=== PATIENT | male | born 1960 | race Caucasian/White ===

== ENCOUNTER 2022-06-26 07:50 | Outpatient (CLI) | payer BC, SELFPAY | END 2022-06-26 07:51 | disposition home or self-care (01) | LOC: NFLDREF 07-04 11:42 | PROVIDERS: PCP Family Medicine; Referring Provider Family Medicine; Visit Provider Family Medicine | DX: Z00.00 Encounter for general adult medical examination without abnormal findings (principal); I10 Essential (primary) hypertension; E78.5 Hyperlipidemia, unspecified; R73.01 Impaired fasting glucose; Z12.5 Encounter for screening for malignant neoplasm of prostate | CPT/HCPCS: 80053; 80061; 84153 ==

== ENCOUNTER 2022-07-29 07:43 | Outpatient (CLI) | payer BC, SELFPAY | END 2022-07-29 07:44 | disposition home or self-care (01) | LOC: OP CLINIC 07:43 | PROVIDERS: PCP Family Medicine; Visit Provider Internal Medicine | DX: Z12.11 Encounter for screening for malignant neoplasm of colon (principal); K63.5 Polyp of colon; K57.30 Diverticulosis of large intestine without perforation or abscess without bleeding | CPT/HCPCS: 45380; 88305; J2250; J3010 ==

== ENCOUNTER 2023-05-16 08:08 | Emergency (ER) | payer OTHER, SELFPAY ==
[2023-05-16 08:12] VITALS: BP 141/95; PULSE 57; RESP 18; TEMP 36.1; O2SAT 97; BMI 27.3
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
[2023-05-16 08:26] VITALS: BP 133/76; PULSE 52; RESP 16; O2SAT 97
[2023-05-16 09:19] VITALS: BP 127/77; PULSE 52; RESP 16; O2SAT 95
== END 2023-05-16 09:41 | disposition home or self-care (01) ==
PROVIDERS: Emergency Provider Family Medicine; PCP Family Medicine
DX: S16.1XXA Strain of muscle, fascia and tendon at neck level, initial encounter (principal); V43.52XA Car driver injured in collision with other type car in traffic accident, initial encounter; M25.522 Pain in left elbow; M25.562 Pain in left knee
CPT/HCPCS: 72040; 73080; 73560; 99284

== ENCOUNTER 2023-07-08 08:42 | Outpatient (CLI) | payer OTHER, SELFPAY | END 2023-07-08 08:43 | disposition home or self-care (01) | PROVIDERS: PCP Family Medicine; Visit Provider Family Medicine | DX: E78.2 Mixed hyperlipidemia (principal); I10 Essential (primary) hypertension | CPT/HCPCS: 80053; 80061 ==

== ENCOUNTER 2024-10-12 12:39 | Emergency (ER) | payer OTHER, SELFPAY ==
--- OUTSIDE RECORDS SUMMARY | 2011-07-05 04:44 | XMS_ITS | Continuity of Care Document ---
Author Organization [facility] Address [address] [address] [place] [address] Phone Care Team Providers Care Lead Software Development Engineer Name Role Phone Unavailable Unavailable Unavailable Advance Directives Directive Yes / No Effective Date File Name No Information Encounters Encounter Description Practice Location Reason(s) For Visit Diagnoses Date Provider Providers Copied on Encounter [facility], [address] [address], [place], [place], [id number], [place] tel:[phone] [facility] No Information Mar-0 9-201 2 No Information Referring Provider: [place], [address] [place], [address]. tel:[phone] Family History Family Member Type Diagnosis Age At Onset No Information Payers Payer name Insurance type Covered libertarian ID Authoriza tion(s) No Information Social History Type Description Quantity Date Captured Comments Sex Male Smoking Status No Information Chief Complaint And Reason For Visit No Information Reason For Referral Reason For Referral No Information History Of Present Illness Encounter Date Complaint History Of Prese nt Illness No Information Functional Status Date Functional Assessmen t No Information Instructions Date Instruction Additional Infor mation No Information Assessments Type Assessment Date No Information Patient Care Teams Name Effective Dates (start - stop) Status Members No Information
[2024-10-12] VITALS (14 sets, daily range): BP systolic 107–130; BP diastolic 67–81; PULSE 54–66; RESP 11–22; TEMP 36.2; O2SAT 94–99; BMI 29.0
--- OUTSIDE RECORDS SUMMARY | 2024-10-12 12:43 | XMS_ITS | Clinical Summary ---
Author Organization [facility] Address [address] [place] [address] Care Team Providers Care Rabbit Breeder Name Role Phone Sadi Agudelol Primary Care Provider Unavailabl e Allergies Active Allergy Reactions Criticality Noted Date Comments Codeine Vomiting 01/19/2020 Morphine Other - Describe In Comment Field High hypotensive Medications aspirin chewable 81 mg chewable tablet Take 81 mg by mouth once daily. Active hydroCHLOROthiaz felix (HCTZ) 25 mg tablet Take 1 tablet by mouth once daily. 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 Gender Identity Not on file Sexual Orientation Not on file Obstetrics History Last Filed Vital Signs Vital Sign Reading Time Taken Comments Blood Pressure 113/72 01/19/2020 11:01 AM CDT to wer Pulse 67 01/19/2020 11:01 AM CDT Temperature - - Respiratory Rate - - Oxygen Saturation 96% 01/19/2020 11:01 AM CDT Inhaled Oxygen Concentration - - Weight 103.9 kg (229 lb) 01/19/2020 11:01 AM CDT Height - - Body Mass Index - - Plan of Treatment Health Maintenance Due Date Last Done Comments Tdap 01/19/1972 Depression screening for age 12+ 1973 HIV for age 15-65 01/19/1976 BMI (ht and wt on same day) for age 18+ 1979 Hepatitis C screening for ag e 18-79 1979 Tetanus booster 1981 Colonoscopy through age 75 2006 Lipids for age 45-75 2006 Pneumococcal series for age 50+ (1 of 1 - PCV) 2011 Zoster (shingles) series for age 50+ (1 of 2) 2011 COVID-19 vaccine series (3 - 2023- season) 2023 08/18/2020, 07/28/2020 Influenza Vaccine (Season Ended) 2024 RSV vaccine for adults or (1 - 1-dose 75+ series) 01/19/2036 Hepatitis B series for 19+ Aged Out N o longer eligible based on patient's age to complete this topic Insurance [facility] Care Teams Rabbit Breeder Relationship Specialty Start Date End Date Hector Agudelo PCP - General Family Practice 01/10/20
--- OUTSIDE RECORDS SUMMARY | 2024-10-12 12:43 | XMS_ITS | Clinical Summary ---
Author Organization [facility] Address [address] , [address] [place] [address] Phone Care Team Providers Care Radar Signal Processing Engineer Name Role Phone [facility] Unavailable Unava ilable Conditions or Problems Problem Name Problem Code Onset Date Status Entry Date Provider Comment Standard Description Annotate Neck pain 69534622 (SNOMED CT) Active Jefferson Pierce MD Neck pain Hand numbness 861734584 (SNOMED CT) Active Jefferson Pierce MD Numbness of hand Medications No information available. Medications Administered No information available. Allergies, Adverse Reactions, Alerts No information available. Results Date Name Value Unit Range Flag Description Internal Other: Authorizatio n - OBS [email or web address] Yes Authoriza tion: Release of Information - Authorize [facility] - Payment and Healthcare Operations ROIAUTHOTHER Yes Authoriz ation: Release of Information - Authorize Others/Insurance - Payment and Healthcare Operations HIECONSENT Yes Consent To Release information to the Health Information Exchange (HIE) [email or web address] Yes Authorizat ion: Authorization for [facility] to leave messages, voicemail, send text messages, send emails AUTHRELHCARE Yes Authoriz ation: Release/Retrieval of Information to/from Healthcare Facilities, Pharmacy Benefit Payers and Providers AUTHPRIVPRAC Yes Authoriz ation: Notice of privacy practices AUTHBENEFIT Yes Authoriza tion: Assignment of Benefits and Payment Agreement Plan of Care No information available. Procedures Code Procedure Name Date Entry Date CPT-34233 Nerve Conduction 7-8 studies CPT-46263 EMG with NCS (5+ muscles) - 1 limb 10/26 Vital Signs No information available. Immunizations No information available. Advance Directives No information available.
--- NOTE | 2024-10-12 13:37 | CRLHL7_ITS ---
For Patients: As a result of the Century Cures Act, medical imaging exams and procedure reports are released immediately into your electronic medical record. You may view this report before your referring provider. If you have questions, please contact your health care provider. INDICATION: Right upper quadrant pain. TECHNIQUE: Ultrasound abdomen limited. COMPARISON: None. FINDINGS: Gallbladder: No stones or sludge. Normal wall thickness. No pericholecystic fluid. Common bile duct: 4 mm. IMPRESSION: Unremarkable ultrasound of the gallbladder and common bile duct. Dictated by Christianne Billings MD @ 10/12/2024 2:02:39 PM (Electronically Signed)
--- NOTE | 2024-10-12 13:38 | CRLHL7_ITS ---
For Patients: As a result of the Century Cures Act, medical imaging exams and procedure reports are released immediately into your electronic medical record. You may view this report before your referring provider. If you have questions, please contact your health care provider. INDICATION: Right lower chest pain. TECHNIQUE: Chest 2 views. COMPARISON: None. FINDINGS/ IMPRESSION: No focal consolidation, effusion or pneumothorax. Cardiac size is within normal limit without pulmonary edema. Scattered degenerative changes of the spine. Dictated by Germain Hernandez MD @ 10/12/2024 2:24:54 PM (Electronically Signed)
--- OUTSIDE RECORDS SUMMARY | 2024-10-12 14:10 | XMS_ITS | Clinical Summary ---
Author Organization [facility] Address [address] , [address] [place] [address] Phone Care Team Providers Care Embossograph Operator Name Role Phone [facility] Unavailable Unava ilable Conditions or Problems Problem Name Problem Code Onset Date Status Entry Date Provider Comment Standard Description Annotate Neck pain 63945712 (SNOMED CT) Active Jefferson Pierce MD Neck pain Hand numbness 523111244 (SNOMED CT) Active Jefferson Pierce MD Numbness [...] Procedures Code Procedure Name Date Entry Date CPT-85988 Nerve Conduction 7-8 studies CPT-97128 EMG with NCS (5+ muscles) - 1 limb 10/26 Vital Signs No information available. Immunizations No information available. Advance Directives No information available.
[2024-10-12 14:22] LABS: Basophils Absolute Auto 0.03 K/uL (0.00-0.30); Basophils Percent Auto 0.4 % (0.0-3.0); Eosinophils Absolute Auto 0.23 K/uL (0.00-0.50); Hematocrit 44.8 % (37.0-53.0); Hemoglobin* 15.1 gm/dL (13.5-17.5); Immature Granulocytes Abs Auto 0.01 K/uL (0.00-0.30); Immature Granulocytes Pct Auto 0.1 %; Mean Corpuscular HGB Conc 34 gm/dL (32-36); Mean Corpuscular Hemoglobin 31 pg (26-34); Mean Corpuscular Volume 92 fL (80-100); Monocytes Percent Auto 8.6 % (0.0-11.0); Neutrophils Absolute Auto 5.54 K/uL (1.7-7.0); Neutrophils Percent Auto 71.9 % (42.0-72.0); Platelet Count* 258 K/uL (140-440); RDW Coefficient of Variation % 12.4 % (11.5-15.5); Red Blood Count 4.85 m/uL (4.30-5.90)
[2024-10-12 14:33] LABS: Slide Review Reflex No
[2024-10-12 14:37] LABS: Troponin, Point-of-Care* 0.01 ng/ml (0.01-0.04)
[2024-10-12 14:43] LABS: Albumin* 4.5 g/dL (3.3-5.0); Chloride* 99 mmol/L (96-114); Potassium* 4.5 mmol/L (3.6-5.1); Sodium* 139 mmol/L (135-149)
[2024-10-12 14:46] LABS: Alanine Aminotransferase* 83 U/L (4-50); Alkaline Phosphatase* 68 U/L (40-150); Anion Gap 9 mEq/L (7-15); Aspartate Amino Transferase* 60 U/L (12-35); Bilirubin Total* 0.7 mg/dL (0.1-1.5); Blood Urea Nitrogen* 16 mg/dL (7-30); Carbon Dioxide* 31 mmol/L (20-32); Creatinine* 0.7 mg/dL (0.5-1.5); Est. Creatinine Clearance* 78.07; Estimated Glomerular Filt Rate 104 ml/min; Total Protein* 7.7 g/dL (6.0-8.3)
[2024-10-12 14:47] LABS: Calcium* 9.5 mg/dL (8.4-10.6); Glucose* 108 mg/dL (60-115); Magnesium* 2.1 mg/dL (1.5-2.6)
--- NOTE | 2024-10-12 15:31 | ED_ITS ---
HPI - General Adult General Date Seen: 10/12/24 Chief complaint: Chest Pain Stated complaint: Near upper abdominal right side pain Time Seen by Provider: 10/12/24 13:02 Source: patient Mode of arrival: ambulatory Limitations: no limitations History of Present Illness HPI narrative: Patient is a 64-year-old male presenting to emergency department for right-sided mid axillary lower pain. Pain was around ribs 7 and 8. He states the pain have been relatively suddenly while he is at work. He states the pain is getting so bad it caused him to feel like he was going to pass out. He has laying on the floor and that seemed to make the symptoms improved. He was at work save his desk when this occurred so EMS was called. He declined come in by EMS in drove himself and instead. States the pain was a sharp stabbing sensation. Deep breath did not seem to make the pain worse. Says the pain is a 2/10. Denies ever having symptoms like this before. No history of heart disease. No history of gallbladder disease. States last time he ate anything was 09:00, several hours before symptoms started. No history of abdominal issues. No other concerns noted at this time. Pain does not seem to get worse with movement. Related Data Previous Rx's ?Medication ?Instructions ?Recorded hydrochlorothiazide 25 mg tablet 25 mg PO DAILY #90 ta bs 07/08/23 lisinopril 20 mg tablet 20 mg PO DAILY #90 tabs 06/26 06/21 nirmatrelvir 300 mg (150 mg 3 ea (3 x 300 mg (150 mg x 2)-100 11/04/23 x2)-ritonavir 100 mg tablet,dose mg) PO QAM AND QPM #3 0 tabs pack (Paxlovid) Allergies Allergy/AdvReac Type Severity Reaction Status Date / Time morphine Allergy Severe Hypotension Verified 11/03/23 12:46 Review of Systems Status of ROS: Reports: 10 or more systems reviewed and unremarkable except as noted in History and below [facility] Medical History History of kidney stones ?Z87.442 - Personal history of urinary calculi (ICD-10) Surgical History History of herniorrhaphy ?Z98.890 - Other specified postprocedural states (ICD-10) ?Z87.19 - Personal history of other diseases of the digestive system (ICD-10) History of spinal surgery ?Z98.890 - Other specified postprocedural states (ICD-10) Family History Father Coronary artery disease Colon cancer Social History What is your current living situation?: I presently have a place to live Problems where you live: declined to answer In the past 12 months, utilities in danger of being shut off: no In past 12 months, lack of transportation kept you from medical appts, meetings, work, or getting things needed for daily living: no In the past 12 mos, have been you worried that your food would run out before you had money to buy more?: never true In the past 12 mos, the food you bought just didn't last and you didn't have money to buy more?: never true Smoking Status: Never smoker Do you use any of these nicotine containing products: None Second hand tobacco smoke exposure: No How often do you have a drink containing alcohol: 4 or more times a week How many standard drinks containing alcohol do you have on a typical day: 1 or 2 How often do you have six or more drinks on one occasion: Never AUDIT-C Alcohol total score: 4 Non-prescribed substance use: denies use How often does anyone, including family, friends and others, physically hurt you : never How often does anyone, including family, friends and others, insult or talk down to you: never How often does anyone, including family, friends and others, threaten you with harm: never How often does anyone, including family, friends and others, scream or curse at you: never service: No Exam Narrative: Exam Narrative: Const: Well-nourished, Well-developed, in mild distress Eyes: PERRL, no conjunctival injection, and symmetrical lids HENT: Atraumatic external nose and ears. Moist mucous membranes. Neck: Symmetric, trachea midline, No thyromegaly. CVS: RRR, No murmurs or gallops. Peripheral pulses 2+ and equal in all extremities RESP: Unlabored respiratory effort. Clear to auscultation bilaterally. GI: Nontender/Nondistended, No rebound or guarding. Negative Smith sign MSK:Extremities w/o deformity, Normal Active ROM Skin: Warm, Dry. No rashes or lesions. Neuro: Normal Muscle tone, No focal neurological deficits. Psych: Awake, Alert, & Oriented x3. Appropriate mood and affect. Const: Vital Signs, click to edit/add: Vital Signs - 24 hr 10/12/24 12:54 10/12/24 13:14 10/12/24 13:15 Temperature 97.2 F L Pulse Rate 59 L 57 L Pulse Rate [Pulse Oximeter] 58 L Respiratory Rate 16 12 13 Blood Pressure 113/72 Blood Pressure [Ri ght Upper Arm] 130/71 Pulse Oximetry 98 97 97 Oxygen Delivery Me thod Room Air 10/12/24 13:30 10/12/24 13:32 10/12/24 13:54 Temperature Pulse Rate 57 L 56 L 54 L Pulse Rate [Pulse Oximeter] Respiratory Rate 11 L Blood Pressure 109/68 Blood Pressure [Ri ght Upper Arm] Pulse Oximetry 94 95 99 Oxygen Delivery Me thod 10/12/24 14:00 10/12/24 14:02 10/12/24 14:15 Temperature Pulse Rate 57 L 60 58 L Pulse Rate [Pulse Oximeter] Respiratory Rate 13 12 21 Blood Pressure 114/81 Blood Pressure [Ri ght Upper Arm] Pulse Oximetry 97 97 96 Oxygen Delivery Me thod 10/12/24 14:30 10/12/24 14:31 10/12/24 14:45 Temperature Pulse Rate 66 58 L 61 Pulse Rate [Pulse Oximeter] Respiratory Rate 22 20 Blood Pressure 109/72 Blood Pressure [Ri ght Upper Arm] Pulse Oximetry 95 97 96 Oxygen Delivery Me thod 10/12/24 15:00 10/12/24 15:02 Temperature Pulse Rate 64 Pulse Rate [Pulse Oximeter] Respiratory Rate 16 Blood Pressure 107/67 Blood Pressure [Ri ght Upper Arm] Pulse Oximetry 97 Oxygen Delivery Me thod Course Vital Signs Vital signs: Initial Vital Signs Temperature 97.2 F L 10/12/24 12:54 Temperature Source Temporal Artery Scan 10/12/24 12:54 Pulse Rate 58 L 10/12/24 12:54 Respiratory Rate 16 10/12/24 12:54 Blood Pressure 130/71 10/12/24 12:54 Blood Pressure Mean 90 10/12/24 12:54 Pulse Oximetry 98 10/12/24 12:54 Oxygen Delivery Method Room Air 10/12/24 12:54 Vital Signs Temperature 97.2 F L 10/12/24 12:54 Pulse Rate 58 L 10/12/24 12:54 Respiratory Rate 16 10/12/24 12:54 Blood Pressure 130/71 10/12/24 12:54 Pulse Oximetry 98 10/12/24 12:54 Oxygen Delivery Method Room Air 10/12/24 12:54 Temperature 97.2 F L 10/12/24 12:54 Pulse Rate 64 10/12/24 15:00 Respiratory Rate 16 10/12/24 15:00 Blood Pressure 107/67 10/12/24 15:02 Pulse Oximetry 97 10/12/24 15:00 Oxygen Delivery Method Room Air 10/12/24 12:54 Medical Decision Making MDM Narrative Medical decision making narrative: Patient is a 64-year-old male presenting to the emergency department for right- sided lower mid axillary pain. Pain seems bill the lower ribs and is not sound in like chest pain but I will check him with an EKG and troponin. I concern for PE, aortic dissection, aortic aneurysm is very low. I will do a chest x-ray look for signs of pneumonia or pneumothorax. Will also do an ultrasound to look for gallbladder disease. CBC, CMP, magnesium ordered. The pain is very much higher more anterior than I would expect for a kidney stone Lab work returned showing no concerning abnormalities. He has a mildly elevated LFTs they were elevated last year but they are slightly more elevated now. I believe these can be followed up outpatient. Chest x-ray reviewed by myself and the radiologist shows no acute concerning abnormalities. Ultrasound shows no acute concerning abnormalities. Repeat troponin was normal. At this time I believe he is safe for discharge. He agrees with this plan. Lab Data Labs: Lab Results 10/12/24 10/12/24 10/12/24 Range/Units 13:38 14:00 15:30 WBC 7.70 (4.50-11.00) K/uL RBC 4.85 (4.30-5.90) m/uL Hgb 15.1 (13.5-17.5) gm/dL Hct 44.8 (37.0-53.0) % MCV 92 (80-100) fL MCH 31 (26-34) pg MCHC 34 (32-36) gm/dL RDW Coeff of [place] 12.4 (11.5-15.5) % Plt Count 258 (140-440) K/uL Neut % (Auto) 71.9 (42.0-72.0) % Lymph % (Auto) 16.0 L (20-44) % [place] % (Auto) 8.6 (0.0-11.0) % Eos % (Auto) 3.0 (0.0-7.0) % Baso % (Auto) 0.4 (0.0-3.0) % Neut # (Auto) 5.54 (1.7-7.0) K/uL Lymph # (Auto) 1.20 (0.90-2.90) K/uL [place] # (Auto) 0.70 (0.00-0.90) K/UL Eos # (Auto) 0.23 (0.00-0.50) K/uL Baso # (Auto) 0.03 (0.00-0.30) K/uL Abs Immat Gran (auto) 0.01 (0.00-0.30) K/uL Imm/Tot Granulo (auto) 0.1 % Sodium 139 (135-149) mmol/L Potassium 4.5 (3.6-5.1) mmol/L Chloride 99 (96-114) mmol/L Carbon Dioxide 31 (20-32) mmol/L Anion Gap 9 (7-15) mEq/L BUN 16 (7-30) mg/dL Creatinine 0.7 (0.5-1.5) mg/dL Estimated Creat Clear 78.07 Estimated GFR 104 ml/min Glucose 108 (60-115) mg/dL Calcium 9.5 (8.4-10.6) mg/dL Magnesium 2.1 (1.5-2.6) mg/dL Total Bilirubin 0.7 (0.1-1.5) mg/dL AST 60 H (12-35) U/L ALT 83 H (4-50) U/L Alkaline Phosphatase 68 (40-150) U/L Total Protein 7.7 (6.0-8.3) g/dL Albumin 4.5 (3.3-5.0) g/dL POC Troponin I 0.01 0.01 (0.01-0.04) ng/ml Imaging Data Chest x-ray: Attestation: I have reviewed the pertinent imaging results. Radiologist's impression: No focal consolidation, effusion or pneumothorax. Cardiac size is within normal limit without pulmonary edema. Scattered degenerative changes of the spine. Dictated by Germain Hernandez MD @ 10/12/2024 2:24:54 PM US - abdomen: Attestation: I have reviewed the pertinent imaging results. Radiologist's impression: Unremarkable ultrasound of the gallbladder and common bile duct. Dictated by Christianne Billings MD @ 10/12/2024 2:02:39 PM ECG Data Attestation: I personally reviewed and interpreted this ECG as follows: Prior ECG tracings: not available for review Interpretation: Sinus bradycardia with a rate of 51 beats per minute, normal intervals, normal axis, no ST or T-wave abnormalities Discharge Plan Discharge Clinical Impression: Atypical chest pain Patient Disposition: Home, Self-Care Condition: Stable Instructions: Chest Pain (ED) Additional Instructions: I am not sure what was causing your pain today but I do not see any concerning findings on our workup. If symptoms returned I recommend returning for evaluation. Otherwise follow up with the primary care provider Prescriptions: No Action hydrochlorothiazide 25 mg tablet 25 mg PO DAILY Qty: 90 3RF lisinopril 20 mg tablet 20 mg PO DAILY Qty: 90 3RF Paxlovid 300 mg (150 mg x 2)-100 mg tablets,dose pack 3 ea PO QAM AND QPM Qty: 30 0RF Follow Up/Referrals: Raul Rodriguez MD [Primary Care Provider, Family Practice] Stand Alone Forms: [employer] Info Instructions
[2024-10-12 16:02] LABS: Troponin, Point-of-Care* 0.01 ng/ml (0.01-0.04)
== END 2024-10-12 16:15 | disposition home or self-care (01) ==
PROVIDERS: Emergency Provider Student in an Organized Health Care Education/Training Program; PCP Family Medicine
DX: R07.89 Other chest pain (principal)
CPT/HCPCS: 36415; 71046; 76705; 80053; 83735; 84484; 85025; 93005; 99283; 99284; 99285

== ENCOUNTER 2024-10-19 08:29 | Outpatient (CLI) | payer OTHER, SELFPAY | END 2024-10-19 08:30 | disposition home or self-care (01) | PROVIDERS: PCP Family Medicine; Visit Provider Family Medicine | DX: I10 Essential (primary) hypertension (principal); E78.5 Hyperlipidemia, unspecified; R73.03 Prediabetes; R00.2 Palpitations | CPT/HCPCS: 80061; 84443 ==